=== PATIENT | female | born 1980 | race Caucasian/White ===

== ENCOUNTER → 2019-12-31 11:26 | Outpatient (CLI) | payer OTHER, SELFPAY ==
--- NOTE | 2019-12-31 11:37 | XR_ITS ---
PROCEDURE: XR KNEE LT 3V CLINICAL INDICATION: PUNCTURE WOUND OF LT KNEE, INITIAL ENCOUNTER COMPARISON: No exams were available for comparison FINDINGS: No fracture or dislocation. No lytic or blastic change. There is normal mineralization. The joint spaces are well-preserved. No significant degenerative/arthritic changes. No erosive changes evident. Other findings:There are no soft tissue abnormalities seen. IMPRESSION: No acute findings. Dictated by: Dr. Sreekanth Ramirez MD 12/31/2019 12:07 Dr. Sreekanth Ramirez MD in [place] 12/31/2019 12:07
== END ==
PROVIDERS: PCP Family Medicine; Visit Provider Family Medicine
DX: S81.032A Puncture wound without foreign body, left knee, initial encounter (principal)
CPT/HCPCS: 73562

== ENCOUNTER 2024-04-01 12:49 | Emergency (ER) | payer OTHER, SELFPAY ==
[2024-04-01 13:30] VITALS: BP 156/94; PULSE 108; RESP 16; TEMP 36.9; O2SAT 97; BMI 19.9
[2024-04-01 13:36] LABS: Apearance,Urine Cloudy (Clear); Bilirubin,Urine Negative (Negative); Blood, Urine 3+ (Negative); Color,Urine Yellow (Yellow); Glucose,Urine (UA) Negative (Negative); Ketones,Urine Negative (Negative); PH,Urine 5.5 (5.0-8.5); Protein,Urine Negative (Negative); UTC Leukocyte Esterase,Urine Negative (Negative); UTC Nitrate,Urine Negative (Negative); Urobilinogen,Urine 0.2 EU/dl (0.2)
--- NOTE | 2024-04-01 13:43 | ED_ITS ---
Discharge Plan Disposition Patient Disposition: Home, Self-Care Condition: Good Prescriptions Prescriptions: New nitrofurantoin monohyd/m-cryst [Macrobid] 100 mg capsule 100 mg PO Q12H 7 Days Qty: 14 0RF Rx Instructions: must administer with a meal/food phenazopyridine [Pyridium] 200 mg tablet 200 mg PO Q8H 2 Days Qty: 6 0RF Referrals Follow up/Referrals: Brown Morgan MD [Primary Care Provider] - See instructions Activity Restrictions/Add. Instructions Additional Instructions/Restrictions: *Increase fluids. Water not Soda or Tea *Start antibiotic immediately and be sure to take as ordered for the FULL length of time although you should start to see improvement over the next 48 hours *Pyridium as needed Remember this medication will turn your urine . This is normal but it will stain what ever it gets on *You should not use Pyridium for more than 48 hours. If so , follow up with your primary physician to review urine culture and ensure that antibiotic is adequate for infection *Be SURE to follow up anytime for new or worsening symptoms with your family doctor. AND in 48 hours for urine culture results with your family doctor, if you do not have a doctor then you may call back to the [facility] for urine culture results and further treatment. We do recommend that you choose and establish care with a Primary Care Physician. ?AND follow up with them ?in 10-14 days to repeat UA to ensure infection is resolved and blood no longer present *Be sure to let your PCP know that we sent urine cultures from the [facility] so they can follow up to ensure that you area the on the correct antibiotic Call your doctor office and make appointment for 48 hours (2 days from today) ?to follow up and get the results of your urine culture and further treatment Follow up immediately if any worsening of pain, abdominal pain or fever, chills or body aches Clinical Impressions Clinical Impression: UTI symptoms Instructions Patient Instructions: Acute Cystitis, Phenazopyridine, Nitrofurantoin Print Language Print Language: Latvian Discharge ED Provider: Rimma Crowe [facility] [place] HPI General Stated complaint: abd pain, pain and frequent urin, pain low back Mode of Arrival: Ambulatory Source of Information: Patient Limitations: No Limitations Time Seen by Provider: 04/01/24 13:44 Description of Symptoms (Recalled from Triage Doc. by RN): PATIENT C/O LOWER BACK PAIN AND BURNING WITH URINATION. SHE STATES SYMPTOMS STARTED APPROX 2 WEEKS AGO BUT BECAME WORSE YESTERDAY HEENT Symptoms (Recalled from RN notes): No Resp Symptoms (Recalled from RN notes): No Skin Symptoms (Recalled from RN notes): No MS Symptoms (Recalled from RN notes): No Functional Status (Recalled from RN notes): WNL History of Present Illness Provider Complaint: Patient states that she has been having burning with urination and feeling of urgency and frequency for about 2 weeks on and off that has got worse over the last few days States that at times she has achy like feeling in her lower back that is worse with walking but thinks that may just be her back acting up States today she has been having more burning with urination and feeling like she has to go worried she may have a UTI so she came in to get checked Related Data Previous Rx's ?Medication ?Instructions ?Recorded nitrofurantoin 100 mg PO Q12H 7 days #14 caps 04/01/24 monohydrate/macrocrystals 100 mg capsule (Macrobid) phenazopyridine 200 mg tablet 200 mg PO Q8H pain 2 days #6 tabs 04/01/24 (Pyridium) Allergies Allergy/AdvReac Type Severity Reaction Status Date / Time aspirin (ASPIRIN) Allergy Intermediate I-HIVES Verified 04/01/24 13:43 Worker's Comp Is this a Worker's Comp case?: No [facility] Disclaimer: The information contained in this section may have been updated after the patient was seen, as this information can be updated by other users. Medical History (Updated 04/01/24 @ 14:01 by Rimma Crowe APRN) Urinary tract infection Surgical History (Updated 04/01/24 @ 13:44 by Keara Tabares RN) History of hysterectomy History of section Social History Smoking Status: Unknown if ever smoked alcohol intake: never current occupational status: employed Travel in the last 8 weeks: None ROS Obtained: Yes All systems reviewed & no additional complaints except as documented and Yes Systems reviewed as appropriate & no additional complaints except as documented Constitutional Constitutional: Reports system reviewed and no additional complaints, except as documented, Reports as per HPI, Denies body ache, Denies chills and Denies fever(s) ENT Ears, Nose, Mouth, and Throat: Reports system reviewed and no additional complaints, except as documented and Reports as per HPI Cardiovascular Cardiovascular: Reports system reviewed and no additional complaints, except as documented and Reports as per HPI Respiratory Respiratory: Reports system reviewed and no additional complaints, except as documented and Reports as per HPI Gastrointestinal Gastrointestingal: Reports system reviewed and no additional complaints, except as documented and as per HPI; Denies abdominal pain Genitourinary Female Genitourinary: Reports system reviewed and no additional complaints, except as documented, Reports as per HPI, Reports dysuria, Reports urinary frequency and Reports urinary urgency Musculoskeletal Musculoskeletal: Reports system reviewed and no additional complaints, except as documented, Reports as per HPI and Reports back pain (on and off worse when she does a lot of walking) Physical Exam General General appearance: alert and in no apparent distress ENT ENT exam: Present mucous membranes moist Respiratory Respiratory exam: Present normal lung sounds bilaterally; Absent respiratory distress or wheezes Cardiovascular Cardiovascular exam: Present regular rate, normal rhythm and normal heart sounds Abdominal Exam Abdominal exam: Present soft and normal bowel sounds; Absent distention, tenderness, guarding, rebound or rigidity Back Exam Back exam: Present normal inspection and full ROM; Absent tenderness, CVA tenderness (R) or CVA tenderness (L) Neurological Exam Neurological exam: Present alert, oriented X3 and normal gait Medical Decision Making Medical Records Screening: Per USPSTF and CDC recommendations, given the prevalence of disease in our region, it is our hospital?s policy to screen for HIV and viral Hepatitis for all patients aged 18 and over and those with ongoing risk factors. Benjamin Inquiry Pt receiving controlled substance: No Benjamin was queried for this patient: No Vital Signs: 04/01/24 13:30 Temperature 98.4 F Temperature Source Oral Pulse Rate [Right Brachial] 108 H Respiratory Rate 16 Blood Pressure [Right Arm] 156/94 H Blood Pressure Mean [Right Arm] 114 Blood Pressure Source [Right Arm] Automatic Cuff Blood Pressure Position [Right Arm] Sitting 02 Sat by Pulse Oximetry 97 Oxygen Delivery Method Room Air Lab Data Lab results reviewed: Yes I reviewed the patient's lab results. Lab Results 04/01/24 13:35: Urine Color Yellow, Urine Appearance Cloudy, Urine pH 5.5, Ur Specific [place] 1.030, Urine Protein Negative, Urine Glucose (UA) Negative, Urine Ketones Negative, Urine Blood 3+, Urine Nitrate Negative, Urine Bilirubin Negative, Urine Urobilinogen 0.2, Ur Leukocyte Esterase Negative Orders (Tests/Meds): ORDERS Category Date Time Status Urine Culture Stat Micro 04/01/24 13:35 Ordered Medical Decision Narrative: Urine showed large blood, patient denies hx of Kidney stones Denies fever, chills or abdominal pain states that she is having urgency, frequency and burning with urination Discussed transfer to the ED for furhter work up to R/O Kidney Stones and she declined States that she wants treated for UTI and will follow up if symptoms do not improve
[2024-04-01 14:04] VITALS: BP 156/94; PULSE 108; RESP 16; TEMP 36.9; O2SAT 97
--- NOTE | 2024-04-05 19:22 | PC.NURSE ---
SPOKE TO PATIENT AND INFORMED OF MEDICATION CHANGED. PATIENT VERBALIZED UNDERSTANDING. RN STATED TO TAKE FULL COURSE OF ANTIBIOTIC AND FOLLOW UP WITH FAMILY PATIENT AGREEABLE.
== END 2024-04-01 14:06 | disposition home or self-care (01) ==
PROVIDERS: Emergency Provider Nurse Practitioner; PCP Internal Medicine Adolescent Medicine
DX: N30.00 Acute cystitis without hematuria (principal)
CPT/HCPCS: 81003; 87086; 87088; 87186; 99213; G0381